=== PATIENT | male | born 1985 | race Two or more races ===

== ENCOUNTER 2018-10-06 11:21 | Emergency (ER) | payer BC, MEDICAID ==
[~2018-10-06] VITALS: Ht 175.3 cm; Wt 111.1 kg
[2018-10-06 12:06] VITALS: BP 121/76
== END 2018-10-06 12:56 | disposition home or self-care (01) ==
LOC: ER 11:21
DX: S82.141A Displaced bicondylar fracture of right tibia, initial encounter for closed fracture (principal); W19.XXXA Unspecified fall, initial encounter; Y93.89 Activity, other specified; Y99.8 Other external cause status; Y92.89 Other specified places as the place of occurrence of the external cause
CPT/HCPCS: 29505; 71101; 73562